=== PATIENT | male | born 1965 | race Caucasian/White ===

== ENCOUNTER 2018-09-28 17:41 | Emergency (ER) | payer SELFPAY ==
[2018-09-28] MEDS ORDERED: LORAZEPAM INJ 2 MG/1 ML VIAL ONE (17:54)
[2018-09-28] MEDS ORDERED: NORMAL SALINE 1000 ML 1,000 ML IV ONE ×2 (17:55→17:56)
[2018-09-28] MEDS ORDERED: LORAZEPAM INJ 2 MG/1 ML VIAL IV ONE (17:56)
[2018-09-28 18:04] LABS: ABSOLUTE LYMPHOCYTES (AUTO) 1.3 10^3/uL (0.5-4.7); ABSOLUTE MONOCYTES (AUTO) 0.9 10^3/uL (0.1-1.4); ABSOLUTE NEUT (AUTO) 7.1 10^3/uL (1.7-8.2); BASOPHILS % (AUTO) 0.3 % (0-2); EOSINOPHILS % (AUTO) 0.2 % (0-6); HEMATOCRIT 41.5 % (37.9-51.0); HEMOGLOBIN 14.9 g/dL (13.5-17.0); LYMPHOCYTES % (AUTO) 14.1 % (13-45); MEAN CORPUSCULAR HEMOGLOBIN 31.1 pg (27.0-33.4); MEAN CORPUSCULAR HGB CONC 35.8 g/dL (32.0-36.0); MEAN CORPUSCULAR VOLUME 87 fl (80-97); MONOCYTES % (AUTO) 9.2 % (3-13); PLATELET COUNT 303 10^3/uL (150-450); RED BLOOD COUNT 4.78 10^6/uL (4.35-5.55); RED CELL DISTRIBUTION WIDTH 13.8 % (11.5-14.0); SEGMENTED NEUTROPHILS % (AUTO) 76.2 % (42-78); TOTAL CELLS COUNTED % (AUTO) 100 %; WHITE BLOOD COUNT 9.4 10^3/uL (4.0-10.5)
[2018-09-28] MEDS ORDERED: ZIPRASIDONE MESYLATE INJ/PF 20 MG SDV IM ONE (18:19)
[2018-09-28 18:25] LABS: ALANINE AMINOTRANSFERASE 63 U/L (21-72); ALBUMIN 4.2 g/dL (3.5-5.0); ALKALINE PHOSPHATASE 77 U/L (38-126); ANION GAP 11 (5-19); ASPARTATE AMINO TRANSFERASE 84 U/L (17-59); BILIRUBIN,DIRECT 0.3 mg/dL (0.0-0.4); BILIRUBIN,TOTAL 0.8 mg/dL (0.2-1.3); BLOOD UREA NITROGEN 12 mg/dL (7-20); CALCIUM 9.2 mg/dL (8.4-10.2); CARBON DIOXIDE 25 mmol/L (22-30); CHLORIDE 88 mmol/L (98-107); GLUCOSE 144 mg/dL (75-110); POTASSIUM 4.1 mmol/L (3.6-5.0); SODIUM 124.2 mmol/L (137-145); TOTAL PROTEIN 6.8 g/dL (6.3-8.2)
[2018-09-28 18:26] LABS: ACETAMINOPHEN < 10 ug/mL (10-30); ALCOHOL < 10 mg/dL (NONE DETECTED); SALICYLATE < 1.0 mg/dL (2.0-20.0)
--- NOTE | 2018-09-28 18:38 | EKG REPORT ---
SEVERITY:- ABNORMAL ECG - SINUS TACHYCARDIA LEFT ATRIAL ABNORMALITY LEFT ANTERIOR FASCICULAR BLOCK : Confirmed by: Kalia Spicer MD 28-Sep-2018 18:38:01
[2018-09-28 19:39] LABS: APPEARANCE,URINE CLEAR; BILIRUBIN,URINE NEGATIVE (NEGATIVE); COLOR,URINE STRAW; GLUCOSE, URINE NEGATIVE (NEGATIVE); KETONES,URINE NEGATIVE (NEGATIVE); LEUKOCYTE ESTERASE,URINE NEGATIVE (NEGATIVE); NITRITE,URINE NEGATIVE (NEGATIVE); PROTEIN,URINE NEGATIVE (NEGATIVE); URINE SPECIFIC GRAVITY 1.003; UROBILINOGEN,URINE NEGATIVE mg/dL (<2.0)
[2018-09-28 19:54] LABS: URINE AMPHETAMINES SCREEN NEGATIVE; URINE BARBITURATES SCREEN NEGATIVE; URINE BENZODIAZEPINES SCREEN UNCONFIRMED POSITIVE; URINE COCAINE SCREEN NEGATIVE; URINE MARIJUANA (THC) SCREEN NEGATIVE; URINE METHADONE SCREEN NEGATIVE; URINE PHENCYCLIDINE SCREEN UNCONFIRMED POSITIVE
--- NOTE | 2018-09-28 22:21 | ER Document Report ---
Addendum entered and electronically signed by TOMA BUTLER LPC 09/30/18 08:43: Discharge - Discharge Clinical Impression: Hyponatremia, Substance-induced psychotic disorder with delusions Condition: Stable Disposition: HOME, SELF-CARE Instructions: Hyponatremia ([facility]) Additional Instructions: You have been evaluated by both medical and behavioral health providers while in the emergency department. You have been cleared from both acute medical and psychiatric services. It is felt your acute psychosis (delusional thinking) was directly related to use of Phencyclidine (PCP). You should avoid illegal substan conrad as they alter your cognition and functioning causing poor insight, judgment and impulse control. You should have your sodium rechecked by your primary care physician in 1 to 2 weeks. Schizophrenia (using things like PCP causes symptoms as seen in individuals diagnosed with this disorder, substance induced Psychosis) Schizophrenia is a chemical disorder that affects how the brain functions. The exact cause is unknown, but it tends to run in families. It is NOT caused by emotional trauma. Schizophrenia causes disordered thinking, including unusual b eliefs and inability to "process" happenings around the patient. Patients with schizophrenia benefit greatly from medicine. These medicines are called antipsychotics. Never stop the medicine without the doctor's approval. Counselling may help the patient deal with his disease. Schizophrenics require a very ordered environment. Stresses and sudden changes may bring out symptoms. Drugs and alcohol abuse may become problems. Contact the counsellor or crisis line if there are thoughts of suicide or of harming others, or if you become aware of unusual thoughts or beliefs Follow-Up Care: You should refrain from using PCP or any other illegal, mind altering substance since it impairs cognition and functioning. You have been provided an outpatient mental health and substance abuse resource sheet. It is recommended you follow up with outpatient services at [facility] where they address both mental health and substance abuse. If your symptoms persist or worsen you should contact your physician immediately, utilize mobile crisis or return to the emergency department. Referrals: [facility] Crisis Team [Outside] - Follow up as needed [facility] [Outside] - Follow up as needed Original Note: ED General - General Chief Complaint: Possible Overdose Stated Complaint: POSSIBLE OVERDOSE Time Seen by Provider: 09/28/18 17:54 TRAVEL OUTSIDE OF THE [place] IN LAST 30 DAYS: No - HPI Notes: Patient is a 53-year-old male brought into the emergency department for evaluation by [employer]. He is under an IVC order. He was found wandering the parking lot at [facility], high on PCP. He states he has used it a few times, it is recreational. He really cannot offer me any further sig nificant history, is very easily distracted and easily agitated. Past Medical History - General Information source: Patient - Social History Smoking Status: Current Some Day Smoker Chew tobacco use (# tins/day): No Frequency of alcohol use: Rare Drug Abuse: Marijuana, Other Family History: Hypertension Patient has suicidal ideation: - unknown Patient has homicidal ideation: - unknown - Past Medical History Cardiac Medical History: Reports: Hx Hypertension Renal/ Medical History: Denies: Hx Peritoneal Dialysis Psychiatric Medical History: Reports: Hx Depression Review of Systems - Review of Systems -: Yes ROS unobtainable due to patient's medical condition Physical Exam - Vital signs Vitals: Temp Pulse Resp BP Pulse Ox 99.7 F 145 H 14 176/114 H 96 09/28/18 17:46 09/28/18 17:46 09/28/18 17:46 09/28/18 17:46 09/28/18 17:46 - Notes Notes: This is an agitated 53-year-old male, hypertensive and tachycardic, who appears his stated age in no acute distress. He will intermittently talk normally, then appears to be hallucinating, then yells out, primarily to God. Head is normocephalic and appears atraumatic. Pupils are equal round, reactive to light. Oral mucosa is moist. Heart is tachycardic with normal S1-S2. Lungs are clear to auscultation bilaterally. Abdomen is soft, nontender, normoactive bowel sounds. Skin is warm and mildly diaphoretic. Patient is awake and alert. He is unable to answer any orientation questions for me. He moves all 4 extremities spontaneously. No gross facial asymmetry noted. Course - Re-evaluation Re-evalutation: 09/28/18 22:17 Patient presents to the emergency department for evaluation. He was initially very agitated. In an attempt to obtain lab work and interventions as needed, the patient was administered IV Ativan, followed by IM Geodon. Temperature Vega catheter was placed. Laboratory investigations revealed a mild hyponatremia. He was given IV fluids. I am unaware as to whether or not this is chronic, as the patient does not have any laboratory investigations here in the past. He was monitored for several hours. His vital signs normalized. He rested comfortably. I was able to wake him later. He admits to using PCP. He states he is concerned about getting home to his children. He does note that there is a responsible adult with them at this time. I expanded the patient that he is under IVC orders, and will have a psychiatric evaluation tomorrow. He voiced understanding to this and is medically cleared for psychiatric evaluation. - Vital Signs Vital signs: Temp Pulse Resp BP Pulse Ox 97.9 F 145 H 11 L 105/65 96 09/28/18 20:01 09/28/18 17:46 09/28/18 20:01 09/28/18 20:01 09/28/18 20:01 - Laboratory Result Diagrams: 09/28/18 17:40 09/28/18 17:40 Laboratory results interpreted by me: 09/28/18 17:40 Sodium 124.2 L Chloride 88 L Glucose 144 H AST 84 H Salicylates < 1.0 L Acetaminophen < 10 L Discharge - Discharge Clinical Impression: Hyponatremia Disposition: PSYCH HOSP/UNIT Instructions: Hyponatremia ([facility]) Additional Instructions: You should have your sodium rechecked by your primary care physician in 1 to 2 weeks.
--- NOTE | 2018-09-29 11:39 | ER Document Report ---
Doctor's Note Notes: 09/29/18 11:37 Patient with a pretty significant hyponatremia. We will repeat the labs. Did receive IV fluids by previous provider. Apparently patient use some PCP. Still having some delusions so we will start him on some medication at this time and see how he does. Patient will need to be watched. I am going to give him Thorazine and Cogentin at this time. 09/29/18 18:03 Repeat sodium still at 124. I have ordered some more IV fluids. Patient is ambulating. Talking and in no acute distress. We will continue to watch. Will sign over to the oncoming team to let them know that patient is quite hyponatremic.
[2018-09-29] MEDS: BENZTROPINE MESYLATE 1 MG TABLET PO SCH (12:28)
[2018-09-29] MEDS: CHLORPROMAZINE HCL 50 MG TABLET PO SCH ×2 (12:28→19:31)
[2018-09-29 14:08] LABS: ANION GAP 6 (5-19); BLOOD UREA NITROGEN 8 mg/dL (7-20); CALCIUM 8.4 mg/dL (8.4-10.2); CARBON DIOXIDE 25 mmol/L (22-30); CHLORIDE 94 mmol/L (98-107); GLUCOSE 141 mg/dL (75-110); POTASSIUM 4.2 mmol/L (3.6-5.0); SODIUM 124.7 mmol/L (137-145)
--- NOTE | 2018-09-29 15:23 | PSYCHOLOGICAL NOTE ---
Psych Note - Psych Note Date seen by psych provider: 09/29/18 Time seen by psych provider: 07:20 - [id number] Psych Note: Reason for Consult: IVC Patient is a 53-year-old male brought into the emergency department for evaluation by [employer]. He is under an IVC order. He was found wandering the parking lot at [facility], high on PCP. According to IVC paperwork patient parked his vehicle in the middle of the road and then was laying in the road yelling about God. Clinician spoke with patient who reports that his private truck broke down at the [facility] parking lot and there was a little bit of stuff that was going on which he then "OD." He reports that it was not a big deal and that he is fine, " really I found the Lord in the whole thing." He reports that he purchased PCP online called [facility]. He discloses that he is used PCP in the past however not this strength. He reports that he takes it because it makes him feel good and that he only purchase this approximately 2 months ago but he is only using "a little bit." When confronted with reports from law enforcement he confirms that his truck did not actually break down and that he was laying in the middle of the road. When clinician discussed patient's actions the previous evening to determine the ability to have insight and judgment he reports that his actions were completely appropriate and that it was "an act for the Lord because it was orders from the Lord." He denies any mental health diagnosis and reports that he does not typically use any other drugs but has tried some in the past. Patient is alert and orientated to person, place, time and circumstance. Mood is euthymic with congruent affect. Patient denies suicidal and homicidal ideation. Thought processes are organized and linear however illogical. Delusions of religiosity are noted. Intellectual abilities appear to be within the average range. Attention and concentration is fair to poor. Eye contact is fair. Conversational speech is within normal rate, tone and prosody. Insight, judgment, impulse control is impaired. Substance abuse; PCP Medication recommendations per [facility]'s contracted psychiatrist Dr.Akintoya LEE are as follows Thorazine 50 mg every 8 hours Cogentin 1 mg daily Impression\\plan: Patient is recommended for IVC petition for overnight mental health observation. Patient presentation has significantly improved since original arrival to [facility] ED however still presents with delusions and illogical thought processes. Concern is patient's insight and judgment is impaired due to his recent PCP use. He identifies stopping his vehicle in the middle of the road and laying in the road as completely appropriate behavior. At this time there is concern that the patient could accidentally harm himself because of his impaired cognitive functioning. Medication recommendations have been provided and patient will be reevaluated in the morning with probable discharge if patient is no longer suffering from impaired cognitive functioning. Dr. Barriga was consulted and care management of this patient; attending physicians in agreement with augmentations and disposition.
[2018-09-29] MEDS: NORMAL SALINE 1000 ML 1,000 ML IV PRN ×2 (18:53→19:52)
[2018-09-30] MEDS: CHLORPROMAZINE HCL 50 MG TABLET PO SCH (03:05)
--- NOTE | 2018-09-30 08:49 | PSYCHOLOGICAL NOTE ---
Psych Note - Psych Note Date seen by psych provider: 09/30/18 Psych Note: Presenting Problem: Patient under an IVC via [facility] for substance induced (PCP) acute psychosis. He was been in the ED with medication administration (Thorazine and Cogentin) to aid in stabilization. Today he is clear and oriented with euthymic mood and brighter affect. He knows it is father's day and his concern is taking his 10 year old son who is visiting from [place] to [facility] as planned. This shows future/forward thinking and appropriate tracking. 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 Recommendation to rescind IVC. He denied SI/HI and these were never presenting problems. He is no longer responding to internal stimuli or under the influence of PCP. Patient provided with the outpatient MH resource sheet and encouraged to follow up with [facility] for MH and SA. Consulted with Dr. Barriga regarding the management and care of patient. ED Physician in agreement with recommendations.
--- NOTE | 2018-09-30 09:26 | ER Document Report ---
Doctor's Note Notes: 09/30/18 09:25 Patient seen and evaluated. He is in no acute distress. He is ambulating in the room and speaking in full sentences. Patient did take a shower this morning and states he is feeling much better. He is being evaluated for psychosis and PCP abuse. Patient appears sober at this point in time. Chart review shows hyponatremia which was unchanged over the last 2 days. He does take lisinopril and Prozac at home and denies any other home medications or changes in medication. He states he has been eating and drinking normal here. He does not appear to have any acute confusion or delirium. Repeat BMP has been ordered for today. Likely plan to discharge home later if patient remains stable. He is oriented to person place and time and would like to see his child on Father's Day.
[2018-09-30] MEDS: BENZTROPINE MESYLATE 1 MG TABLET PO SCH (09:36)
[2018-09-30 10:10] LABS: ANION GAP 8 (5-19); BLOOD UREA NITROGEN 9 mg/dL (7-20); CALCIUM 9.2 mg/dL (8.4-10.2); CARBON DIOXIDE 25 mmol/L (22-30); CHLORIDE 98 mmol/L (98-107); GLUCOSE 137 mg/dL (75-110); POTASSIUM 4.1 mmol/L (3.6-5.0)
[2018-09-30 10:45] VITALS: BP 161/102
== END 2018-09-30 10:45 | disposition home or self-care (01) ==
LOC: ER 17:41
DX: E87.1 Hypo-osmolality and hyponatremia (principal); F23 Brief psychotic disorder; R00.0 Tachycardia, unspecified; I10 Essential (primary) hypertension; F17.200 Nicotine dependence, unspecified, uncomplicated
CPT/HCPCS: 93005; 99285; 96372; 96361; 51702; 96374; 36415; 80307 ×4; 85025; 80048; 80053; 81001; 93010; J3490 ×2; J2060; J3486; J7030 ×2